=== PATIENT | female | born 1960 | race Caucasian/White ===

== ENCOUNTER 2018-03-11 17:36 | Inpatient (IN) | payer OTHER, MEDICAID ==
[~2018-03-11] VITALS: Ht 165.1 cm; Wt 77.5 kg
[2018-03-11 21:59] VITALS: BP 142/85
[2018-03-11 23:20] VITALS: BP 156/87
[2018-03-11 23:58] LABS: MEAN CORPUSCULAR HEMOGLOBIN 30.5 PG (27.0-31.0); MEAN CORPUSCULAR HGB CONC 33.3 % (33.0-36.5); MEAN CORPUSCULAR VOLUME 91.5 FL (78-98); PLATELET COUNT 245 X10'3 (140-440); RED BLOOD COUNT 3.28 X10'6 (4.20-5.60); RED CELL DISTRIBUTION WIDTH 15.9 % (11.5-14.5); WHITE BLOOD COUNT 8.9 X10'3 (4.5-11.0)
[2018-03-12 00:06] LABS: ALBUMIN 1.6 G/DL (3.4-5.0); ANION GAP 6 (8-16); BLOOD UREA NITROGEN 6 MG/DL (7-18); BUN/CREATININE RATIO 8.5 (6.6-38.0); CALCIUM 8.3 MG/DL (8.5-10.1); CHLORIDE 103 MMOL/L (99-107); CREATININE 0.71 MG/DL (0.40-0.90); GLUCOSE 80 MG/DL (70-104); SODIUM 141 MMOL/L (135-145); eGFR 85 ML/MIN
[2018-03-12 00:12] LABS: HEMOGLOBIN A1C 5.4 % (4.5-6.2)
[2018-03-12] MEDS ORDERED: potassium Cl 40MEQ/NS 500ml 500 ML IV PRN ×2 (00:25)
[2018-03-12] MEDS ORDERED: potassium Cl 20 mEq SR tablet PO PRN (00:25)
[2018-03-12] MEDS: potassium Cl 20 mEq SR tablet PO PRN ×3 (00:59→18:49)
[2018-03-12] MEDS: ketorolac tromethamine 15mg/ml inj. IV PRN ×4 (01:00→20:06)
[2018-03-12] MEDS ORDERED: LORazepam 1 MG tablet PO PRN ×2 (01:10→04:05)
[2018-03-12] MEDS ORDERED: hydrOXYzine 25 MG tablet PO PRN (01:10)
[2018-03-12 03:00] VITALS: BP 172/88
[2018-03-12] MEDS ORDERED: ondansetron 4mg rapidly disintigrating tab PO PRN (03:25)
[2018-03-12] MEDS ORDERED: tizanidine 4mg tablet PO PRN (03:25)
[2018-03-12] MEDS ORDERED: haloperidol lactate 5mg/ml inj IM PRN (04:05)
[2018-03-12] MEDS ORDERED: thiamine 100mg/ml 2ml inj. IV ONE (04:05)
[2018-03-12] MEDS ORDERED: LORazepam 2 mg/ml vial IV PRN (04:05)
[2018-03-12] MEDS ORDERED: haloperidol 5mg tablet PO PRN (04:05)
[2018-03-12] MEDS ORDERED: dextrose 50%-water 50ml dispensing syringe IV PRN (04:05)
[2018-03-12 06:00] VITALS: BP 167/77
[2018-03-12 06:20] LABS: BASOPHILS % (AUTO) 0.3 % (0-1); EOSINOPHILS # (AUTO) 0.1 X10'3 (0-0.9); EOSINOPHILS % (AUTO) 0.9 % (0-6); HEMATOCRIT 32.4 % (35.0-45.0); HEMOGLOBIN 10.8 g/dl (12.0-16.0); LYMPHOCYTES # (AUTO) 0.6 X10'3 (1.1-4.8); LYMPHOCYTES % (AUTO) 5.5 % (21-51); MEAN CORPUSCULAR HEMOGLOBIN 30.7 PG (27.0-31.0); MEAN CORPUSCULAR HGB CONC 33.4 % (33.0-36.5); MEAN CORPUSCULAR VOLUME 91.9 FL (78-98); MEAN PLATELET VOLUME 8.3 FL (7.4-10.4); MONOCYTES # (AUTO) 0.2 X10'3 (0-0.9); MONOCYTES % (AUTO) 1.5 % (2-12); NEUTROPHILS # (AUTO) 10.3 X10'3 (1.8-7.7); NEUTROPHILS % (AUTO) 91.8 % (42-75); PLATELET COUNT 266 X10'3 (140-440); RED BLOOD COUNT 3.52 X10'6 (4.20-5.60); RED CELL DISTRIBUTION WIDTH 15.8 % (11.5-14.5); WHITE BLOOD COUNT 11.3 X10'3 (4.5-11.0)
[2018-03-12] MEDS: loratadine 10mg tablet PO SCH ×2 (07:57→20:05)
[2018-03-12] MEDS: gabapentin 300mg capsule PO SCH ×3 (07:57→20:06)
[2018-03-12] MEDS: thiamine 100mg tablet PO SCH (07:57)
[2018-03-12] MEDS: busPIRone 15mg tablet PO SCH ×2 (07:57→20:06)
[2018-03-12] MEDS: vitamin D (cholecalciferol) 1,000 unit tablet PO SCH (07:58)
[2018-03-12] MEDS: famotidine 20mg tablet PO SCH (07:58)
[2018-03-12] MEDS: lisinopril 10 MG tablet PO SCH (07:58)
[2018-03-12] MEDS: cyanocobalamin 500mcg tablet PO SCH (07:58)
[2018-03-12] MEDS ORDERED: ibuprofen 200mg tablet PO SCH (08:00)
[2018-03-12] MEDS: topiramate 25mg tablet PO SCH ×2 (08:59→20:06)
[2018-03-12] MEDS: duloxetine 20mg capsule.DR PO SCH (08:59)
[2018-03-12] MEDS: HYDROcodone/acetaminophen 5mg/325mg tablet PO PRN ×3 (10:47→21:22)
[2018-03-12 11:00] VITALS: BP 161/86
[2018-03-12] MEDS ORDERED: GABA-532 PO (14:28)
[2018-03-12] MEDS ORDERED: OMEP-50 PO (14:35)
[2018-03-12] MEDS ORDERED: HYDR-3927 PO (14:35)
[2018-03-12] MEDS ORDERED: LISI10TA4 PO (14:35)
[2018-03-12] MEDS ORDERED: IBUP-1986 PO (14:35)
[2018-03-12] MEDS ORDERED: BUSP30TA3 PO (14:35)
[2018-03-12] MEDS ORDERED: TRAZ-143 PO (14:35)
[2018-03-12] MEDS ORDERED: DULO30CA51 PO (14:35)
[2018-03-12] MEDS ORDERED: LORA10TA7 PO (14:35)
[2018-03-12] MEDS ORDERED: VILA40TA PO (14:35)
[2018-03-12] MEDS ORDERED: GLAT40SY IV (14:35)
[2018-03-12 15:00] VITALS: BP 152/78
[2018-03-12 19:00] VITALS: BP 143/87
[2018-03-12] MEDS: traZODone 50mg tablet PO SCH (20:05)
[2018-03-12 21:20] LABS: MAGNESIUM 2.1 MG/DL (1.5-2.4); POTASSIUM 3.8 MMOL/L (3.5-5.1)
[2018-03-12 23:00] VITALS: BP 149/74
[2018-03-13] VITALS (28 sets, daily range): BP systolic 138–188; BP diastolic 81–114
[2018-03-13] MEDS: ketorolac tromethamine 15mg/ml inj. IV PRN (02:12)
[2018-03-13 05:56] LABS: BASOPHILS % (AUTO) 0.2 % (0-1); EOSINOPHILS # (AUTO) 0.3 X10'3 (0-0.9); EOSINOPHILS % (AUTO) 2.6 % (0-6); LYMPHOCYTES # (AUTO) 1.1 X10'3 (1.1-4.8); LYMPHOCYTES % (AUTO) 11.4 % (21-51); MEAN CORPUSCULAR HEMOGLOBIN 30.1 PG (27.0-31.0); MEAN CORPUSCULAR HGB CONC 33.1 % (33.0-36.5); MEAN PLATELET VOLUME 7.8 FL (7.4-10.4); MONOCYTES # (AUTO) 0.5 X10'3 (0-0.9); NEUTROPHILS # (AUTO) 7.8 X10'3 (1.8-7.7); NEUTROPHILS % (AUTO) 80.8 % (42-75); PRE OP PLATELET COUNT 301 X10'3 (140-440)
[2018-03-13 06:11] LABS: PRE OP PARTIAL THROMB. TIME 32 SECONDS (22-35); PROTHROMBIN TIME 10.5 SECONDS (9.0-12.0)
[2018-03-13 06:19] LABS: ALBUMIN 1.6 G/DL (3.4-5.0); ALBUMIN/GLOBULIN RATIO 0.4 (1.1-1.5); ALKALINE PHOSPHATASE 135 IU/L (46-116); BLOOD UREA NITROGEN 4 MG/DL (7-18); BUN/CREATININE RATIO 6.3 (6.6-38.0); CALCIUM 8.1 MG/DL (8.5-10.1); CHLORIDE 106 MMOL/L (99-107); CREATININE 0.63 MG/DL (0.40-0.90); PRE OP ALT 20 U/L (30-65); PRE OP ANION GAP 9 (8-16); PRE OP AST 39 U/L (10-37); PRE OP BILIRUB, TOTAL 0.4 MG/DL (0.0-1.0); PRE OP GLUCOSE 74 MG/DL (70-104); PRE OP POTASSIUM 3.6 MMOL/L (3.4-5.1); PRE OP SODIUM 141 MMOL/L (135-145); TOTAL CARBON DIOXIDE 25.8 MMOL/L (24-32); TOTAL PROTEIN 5.8 G/DL (6.4-8.2); eGFR > 90 ML/MIN
[2018-03-13 06:32] LABS: PRE OP HEMOGLOBIN 9.9 g/dL (12.0-16.0)
[2018-03-13] MEDS: lisinopril 10 MG tablet PO SCH (07:35)
[2018-03-13] MEDS ORDERED: LIDOcaine 1% (10mg/ml) 2ml vial ONE (07:39)
[2018-03-13] MEDS ORDERED: ROPIVAcaine 0.5% (5mg/ml) 30ml vial ONE (07:39)
[2018-03-13] MEDS: busPIRone 15mg tablet PO SCH ×2 (08:00→20:30)
[2018-03-13] MEDS: thiamine 100mg tablet PO SCH (08:00)
[2018-03-13] MEDS: cyanocobalamin 500mcg tablet PO SCH (08:00)
[2018-03-13] MEDS: vitamin D (cholecalciferol) 1,000 unit tablet PO SCH (08:00)
[2018-03-13] MEDS: gabapentin 300mg capsule PO SCH ×3 (08:00→20:30)
[2018-03-13] MEDS: famotidine 20mg tablet PO SCH (08:00)
[2018-03-13] MEDS: topiramate 25mg tablet PO SCH ×2 (08:00→20:30)
[2018-03-13] MEDS: loratadine 10mg tablet PO SCH ×2 (08:00→20:30)
[2018-03-13] MEDS: duloxetine 20mg capsule.DR PO SCH (08:00)
[2018-03-13] MEDS ORDERED: MIDAZolam 5mg/5ml vial ONE (08:02)
[2018-03-13] MEDS ORDERED: fentaNYL /PF 50mcg/ml 5ml ampule ONE (08:03)
[2018-03-13] MEDS ORDERED: rocuronium 10mg/ml inj IV ONE (08:06)
[2018-03-13] MEDS ORDERED: propofol inj 20 ML IV ONE (08:06)
[2018-03-13] MEDS ORDERED: sevoflurane 250ml liquid IH ONE (08:21)
[2018-03-13] MEDS ORDERED: ceFAZolin 1000mg inj ONE ×3 (09:18→09:27)
[2018-03-13] MEDS ORDERED: ringers solution, lacted 1,000 ML IV SCH (09:42)
[2018-03-13] MEDS ORDERED: labetalol 5mg/ml 20ml inj. IV ONE (09:43)
[2018-03-13] MEDS ORDERED: ondansetron/PF 4mg/2ml inj IV PRN ×2 (09:45→10:20)
[2018-03-13] MEDS ORDERED: labetalol 20mg/4ml (5mg/ml) syringe IV PRN (09:45)
[2018-03-13] MEDS ORDERED: morphine 4 MG/ML inj SYRINge IV PRN ×3 (09:45→10:20)
[2018-03-13] MEDS ORDERED: meperidine/PF 25mg/ml syringe IV PRN ×2 (09:45)
[2018-03-13] MEDS ORDERED: sugammadex 200mg/2ml injection IV ONE ×2 (10:06→10:08)
[2018-03-13] MEDS ORDERED: morphine/NS 5 mg/ml CADD 50 ML IV SCH (10:17)
[2018-03-13] MEDS ORDERED: metoclopramide 5 mg/ml inj IV PRN (10:20)
[2018-03-13] MEDS ORDERED: naloxone 0.4 mg/ml inj IV PRN (10:20)
[2018-03-13] MEDS ORDERED: albuterol 2.5 MG/3 ML nebule NEB PRN (10:20)
[2018-03-13] MEDS ORDERED: HYDROcodone/acetaminophen 10/325mg tab PO PRN (10:20)
[2018-03-13] MEDS ORDERED: CADD PCA waste documentation MC PRN (10:20)
[2018-03-13] MEDS ORDERED: magnesium hydroxide 30ml (MOM) UD suspension PO PRN (10:20)
[2018-03-13] MEDS: morphine 4 MG/ML inj SYRINge IV PRN ×2 (10:48→11:18)
[2018-03-13 11:11] LABS: ABG BASE EXCESS -2.6 mmol/L (-2.0-3.0); ABG HCO3 22.3 mmol/L (22.0-26.0); ABG PCO2 (T) 37.7 mmHg (32.0-45.0); ABG PH (T) 7.387 (7.350-7.450); ABG PO2 (T) 94.9 mmHg (83-108); FCOHb 0.3 % (0.5-1.5); FLOW 32 L/min; FMetHb 0.3 % (0.3-1.12); FO2Hb 96.4 % (94-100); PATIENT TEMPERATURE 36.4; TOTAL HEMOGLOBIN 10.5 G/dl (12.0-16.0)
[2018-03-13] MEDS: MORPHINE CADD 5 MG/ML 50ML IV SCH ×7 (11:47→23:00)
[2018-03-13] MEDS ORDERED: hydrALAZINE 20mg/ml inj. IV PRN (13:50)
[2018-03-13] MEDS: metoprolol tartrate 25mg tablet PO SCH ×2 (14:20→20:30)
[2018-03-13 14:53] LABS: BASOPHILS % (AUTO) 0.3 % (0-1); EOSINOPHILS % (AUTO) 0.2 % (0-6); HEMATOCRIT 29.5 % (35.0-45.0); HEMOGLOBIN 9.7 g/dl (12.0-16.0); LYMPHOCYTES # (AUTO) 0.8 X10'3 (1.1-4.8); LYMPHOCYTES % (AUTO) 5.4 % (21-51); MEAN CORPUSCULAR HEMOGLOBIN 30.1 PG (27.0-31.0); MEAN CORPUSCULAR VOLUME 91.3 FL (78-98); MEAN PLATELET VOLUME 7.8 FL (7.4-10.4); MONOCYTES # (AUTO) 0.2 X10'3 (0-0.9); MONOCYTES % (AUTO) 1.3 % (2-12); NEUTROPHILS # (AUTO) 14.1 X10'3 (1.8-7.7); NEUTROPHILS % (AUTO) 92.8 % (42-75); PLATELET COUNT 326 X10'3 (140-440); RED BLOOD COUNT 3.23 X10'6 (4.20-5.60); RED CELL DISTRIBUTION WIDTH 15.1 % (11.5-14.5); WHITE BLOOD COUNT 15.1 X10'3 (4.5-11.0)
[2018-03-13 15:01] LABS: ALBUMIN 1.5 G/DL (3.4-5.0); ANION GAP 12 (8-16); BLOOD UREA NITROGEN 4 MG/DL (7-18); BUN/CREATININE RATIO 7.8 (6.6-38.0); CALCIUM 8.2 MG/DL (8.5-10.1); CHLORIDE 102 MMOL/L (99-107); CREATININE 0.51 MG/DL (0.40-0.90); GLUCOSE 81 MG/DL (70-104); POTASSIUM 3.7 MMOL/L (3.5-5.1); SODIUM 139 MMOL/L (135-145); TOTAL CARBON DIOXIDE 24.7 MMOL/L (24-32); eGFR > 90 ML/MIN
[2018-03-13] MEDS: ceFAZolin 1GM/D5W- ADD-VANTAGE 50 ML IV SCH (16:08)
[2018-03-13] MEDS ORDERED: glucagon, human recombinant 1mg kit SUBCUT PRN (17:40)
[2018-03-13] MEDS ORDERED: dextrose 50%-water 50ml dispensing syringe IV PRN ×2 (17:40)
[2018-03-13] MEDS ORDERED: dextrose ORAL solution 15 GM/59 ML bottle PO PRN ×2 (17:40)
[2018-03-13] MEDS: traZODone 50mg tablet PO SCH (20:30)
[2018-03-13] MEDS: docusate sod 100mg capsule PO SCH (20:30)
[2018-03-14] VITALS (24 sets, daily range): BP systolic 83–147; BP diastolic 62–95
[2018-03-14] MEDS: ceFAZolin 1GM/D5W- ADD-VANTAGE 50 ML IV SCH (00:15)
[2018-03-14] MEDS: MORPHINE CADD 5 MG/ML 50ML IV SCH ×12 (01:00→23:00)
[2018-03-14 03:46] LABS: BASOPHILS % (AUTO) 0.3 % (0-1); EOSINOPHILS # (AUTO) 0.3 X10'3 (0-0.9); HEMATOCRIT 28.8 % (35.0-45.0); HEMOGLOBIN 9.5 g/dl (12.0-16.0); LYMPHOCYTES # (AUTO) 1.6 X10'3 (1.1-4.8); LYMPHOCYTES % (AUTO) 15.3 % (21-51); MEAN CORPUSCULAR HEMOGLOBIN 30.1 PG (27.0-31.0); MEAN CORPUSCULAR HGB CONC 32.9 % (33.0-36.5); MEAN CORPUSCULAR VOLUME 91.5 FL (78-98); MEAN PLATELET VOLUME 8.2 FL (7.4-10.4); MONOCYTES # (AUTO) 0.7 X10'3 (0-0.9); MONOCYTES % (AUTO) 6.7 % (2-12); NEUTROPHILS # (AUTO) 7.9 X10'3 (1.8-7.7); NEUTROPHILS % (AUTO) 74.7 % (42-75); PLATELET COUNT 289 X10'3 (140-440); RED BLOOD COUNT 3.15 X10'6 (4.20-5.60); RED CELL DISTRIBUTION WIDTH 15.7 % (11.5-14.5); WHITE BLOOD COUNT 10.6 X10'3 (4.5-11.0)
[2018-03-14] MEDS: cyanocobalamin 500mcg tablet PO SCH (07:11)
[2018-03-14] MEDS: metoprolol tartrate 25mg tablet PO SCH ×2 (07:12→20:50)
[2018-03-14] MEDS: docusate sod 100mg capsule PO SCH ×2 (07:12→20:51)
[2018-03-14] MEDS: loratadine 10mg tablet PO SCH ×2 (07:12→20:51)
[2018-03-14] MEDS: busPIRone 15mg tablet PO SCH ×2 (07:12→20:52)
[2018-03-14] MEDS: duloxetine 20mg capsule.DR PO SCH (07:12)
[2018-03-14] MEDS: gabapentin 300mg capsule PO SCH ×3 (07:12→20:51)
[2018-03-14] MEDS: lisinopril 10 MG tablet PO SCH (07:13)
[2018-03-14] MEDS: thiamine 100mg tablet PO SCH (07:13)
[2018-03-14] MEDS: topiramate 25mg tablet PO SCH ×2 (07:13→20:51)
[2018-03-14] MEDS: vitamin D (cholecalciferol) 1,000 unit tablet PO SCH (07:14)
[2018-03-14] MEDS: famotidine 20mg tablet PO SCH (07:21)
[2018-03-14 14:43] LABS: ALBUMIN 1.7 G/DL (3.4-5.0); ANION GAP 8 (8-16); BLOOD UREA NITROGEN 8 MG/DL (7-18); BUN/CREATININE RATIO 11.3 (6.6-38.0); CALCIUM 8.2 MG/DL (8.5-10.1); CHLORIDE 101 MMOL/L (99-107); CREATININE 0.71 MG/DL (0.40-0.90); GLUCOSE 99 MG/DL (70-104); POTASSIUM 4.2 MMOL/L (3.5-5.1); SODIUM 139 MMOL/L (135-145); TOTAL CARBON DIOXIDE 30.5 MMOL/L (24-32); eGFR 85 ML/MIN
[2018-03-14] MEDS: traZODone 50mg tablet PO SCH (20:51)
[2018-03-15] VITALS (15 sets, daily range): BP systolic 98–124; BP diastolic 61–90
[2018-03-15] MEDS: MORPHINE CADD 5 MG/ML 50ML IV SCH ×4 (01:00→07:00)
[2018-03-15 05:35] LABS: BASOPHILS # (AUTO) 0.1 X10'3 (0-0.2); BASOPHILS % (AUTO) 0.8 % (0-1); EOSINOPHILS # (AUTO) 0.3 X10'3 (0-0.9); EOSINOPHILS % (AUTO) 2.1 % (0-6); HEMATOCRIT 30.8 % (35.0-45.0); HEMOGLOBIN 10.3 g/dl (12.0-16.0); LYMPHOCYTES # (AUTO) 1.1 X10'3 (1.1-4.8); LYMPHOCYTES % (AUTO) 8.5 % (21-51); MEAN CORPUSCULAR HEMOGLOBIN 30.7 PG (27.0-31.0); MEAN CORPUSCULAR HGB CONC 33.4 % (33.0-36.5); MEAN CORPUSCULAR VOLUME 92.1 FL (78-98); MEAN PLATELET VOLUME 7.6 FL (7.4-10.4); MONOCYTES # (AUTO) 0.6 X10'3 (0-0.9); MONOCYTES % (AUTO) 4.8 % (2-12); NEUTROPHILS # (AUTO) 10.4 X10'3 (1.8-7.7); NEUTROPHILS % (AUTO) 83.8 % (42-75); PLATELET COUNT 354 X10'3 (140-440); RED BLOOD COUNT 3.34 X10'6 (4.20-5.60); RED CELL DISTRIBUTION WIDTH 16.2 % (11.5-14.5); WHITE BLOOD COUNT 12.4 X10'3 (4.5-11.0)
[2018-03-15] MEDS: famotidine 20mg tablet PO SCH (07:09)
[2018-03-15] MEDS: vitamin D (cholecalciferol) 1,000 unit tablet PO SCH (07:09)
[2018-03-15] MEDS: lisinopril 10 MG tablet PO SCH (07:10)
[2018-03-15] MEDS: gabapentin 300mg capsule PO SCH ×3 (07:10→20:14)
[2018-03-15] MEDS: cyanocobalamin 500mcg tablet PO SCH (07:10)
[2018-03-15] MEDS: metoprolol tartrate 25mg tablet PO SCH ×2 (07:10→20:17)
[2018-03-15] MEDS: duloxetine 20mg capsule.DR PO SCH (07:10)
[2018-03-15] MEDS: busPIRone 15mg tablet PO SCH ×2 (07:10→20:15)
[2018-03-15] MEDS: loratadine 10mg tablet PO SCH ×2 (07:10→20:14)
[2018-03-15] MEDS: thiamine 100mg tablet PO SCH (07:10)
[2018-03-15] MEDS: topiramate 25mg tablet PO SCH ×2 (07:10→20:14)
[2018-03-15] MEDS: docusate sod 100mg capsule PO SCH ×2 (07:10→20:13)
[2018-03-15] MEDS ORDERED: potassium Cl 40MEQ/NS 500ml 500 ML IV PRN ×2 (08:30)
[2018-03-15] MEDS ORDERED: magnesium Cl slow-release 64mg tablet PO PRN (08:30)
[2018-03-15] MEDS ORDERED: potassium Cl 20 mEq SR tablet PO PRN ×2 (08:30)
[2018-03-15] MEDS ORDERED: magnesium 4gm in 100ml NS 100 ML IV PRN (08:30)
[2018-03-15] MEDS ORDERED: magnesium/D5W IVPB 50 ML IV PRN (08:30)
[2018-03-15] MEDS: HYDROcodone/acetaminophen 10/325mg tab PO PRN ×3 (11:28→20:18)
[2018-03-15] MEDS: magnesium Cl slow-release 64mg tablet PO SCH (20:11)
[2018-03-15] MEDS: traZODone 50mg tablet PO SCH (20:13)
[2018-03-15] MEDS: potassium Cl 20 mEq SR tablet PO SCH (20:15)
[2018-03-16] MEDS: HYDROcodone/acetaminophen 10/325mg tab PO PRN ×5 (01:23→21:06)
[2018-03-16 03:00] VITALS: BP 112/70
[2018-03-16 06:00] VITALS: BP 134/74
[2018-03-16 06:23] LABS: BASOPHILS % (AUTO) 0.4 % (0-1); EOSINOPHILS # (AUTO) 0.3 X10'3 (0-0.9); EOSINOPHILS % (AUTO) 4.1 % (0-6); HEMOGLOBIN 9.2 g/dl (12.0-16.0); LYMPHOCYTES # (AUTO) 1.5 X10'3 (1.1-4.8); LYMPHOCYTES % (AUTO) 24.2 % (21-51); MEAN CORPUSCULAR HEMOGLOBIN 30.1 PG (27.0-31.0); MEAN CORPUSCULAR VOLUME 91.1 FL (78-98); MEAN PLATELET VOLUME 7.5 FL (7.4-10.4); MONOCYTES # (AUTO) 0.6 X10'3 (0-0.9); NEUTROPHILS % (AUTO) 62.3 % (42-75); PLATELET COUNT 363 X10'3 (140-440); RED BLOOD COUNT 3.07 X10'6 (4.20-5.60); RED CELL DISTRIBUTION WIDTH 15.9 % (11.5-14.5); WHITE BLOOD COUNT 6.4 X10'3 (4.5-11.0)
[2018-03-16 06:56] LABS: ALBUMIN 1.5 G/DL (3.4-5.0); ANION GAP 6 (8-16); BLOOD UREA NITROGEN 10 MG/DL (7-18); BUN/CREATININE RATIO 17.2 (6.6-38.0); CALCIUM 8.2 MG/DL (8.5-10.1); CHLORIDE 106 MMOL/L (99-107); CREATININE 0.58 MG/DL (0.40-0.90); GLUCOSE 84 MG/DL (70-104); POTASSIUM 3.9 MMOL/L (3.5-5.1); SODIUM 142 MMOL/L (135-145); TOTAL CARBON DIOXIDE 30.1 MMOL/L (24-32); eGFR > 90 ML/MIN
[2018-03-16] MEDS: potassium Cl 20 mEq SR tablet PO SCH ×2 (07:41→21:01)
[2018-03-16] MEDS: gabapentin 300mg capsule PO SCH ×3 (07:41→21:02)
[2018-03-16] MEDS: topiramate 25mg tablet PO SCH ×2 (07:41→21:02)
[2018-03-16] MEDS: lisinopril 10 MG tablet PO SCH (07:41)
[2018-03-16] MEDS: duloxetine 20mg capsule.DR PO SCH (07:41)
[2018-03-16] MEDS: loratadine 10mg tablet PO SCH ×2 (07:41→21:00)
[2018-03-16] MEDS: vitamin D (cholecalciferol) 1,000 unit tablet PO SCH (07:41)
[2018-03-16] MEDS: metoprolol tartrate 25mg tablet PO SCH ×2 (07:42→21:01)
[2018-03-16] MEDS: cyanocobalamin 500mcg tablet PO SCH (07:42)
[2018-03-16] MEDS: busPIRone 15mg tablet PO SCH ×2 (07:42→21:00)
[2018-03-16] MEDS: docusate sod 100mg capsule PO SCH ×2 (07:42→21:00)
[2018-03-16] MEDS: famotidine 20mg tablet PO SCH (07:42)
[2018-03-16] MEDS: magnesium Cl slow-release 64mg tablet PO SCH ×2 (07:43→21:02)
[2018-03-16] MEDS: thiamine 100mg tablet PO SCH (07:43)
[2018-03-16] MEDS: K and/or MAG REPLACEMENT MC SCH (08:00)
[2018-03-16 11:00] VITALS: BP 104/65
[2018-03-16 15:00] VITALS: BP 132/80
[2018-03-16 16:00] VITALS: BP 114/66
[2018-03-16] MEDS: traZODone 50mg tablet PO SCH (21:02)
[2018-03-16 22:00] VITALS: BP 102/69
[2018-03-17 02:00] VITALS: BP 117/71
[2018-03-17] MEDS: HYDROcodone/acetaminophen 10/325mg tab PO PRN ×3 (02:01→12:07)
[2018-03-17 06:19] LABS: BASOPHILS # (AUTO) 0.1 X10'3 (0-0.2); BASOPHILS % (AUTO) 0.7 % (0-1); EOSINOPHILS # (AUTO) 0.2 X10'3 (0-0.9); EOSINOPHILS % (AUTO) 2.7 % (0-6); HEMOGLOBIN 9.5 g/dl (12.0-16.0); LYMPHOCYTES # (AUTO) 1.7 X10'3 (1.1-4.8); LYMPHOCYTES % (AUTO) 18.4 % (21-51); MEAN CORPUSCULAR HGB CONC 32.8 % (33.0-36.5); MEAN CORPUSCULAR VOLUME 91.3 FL (78-98); MEAN PLATELET VOLUME 8.1 FL (7.4-10.4); MONOCYTES # (AUTO) 0.6 X10'3 (0-0.9); MONOCYTES % (AUTO) 6.5 % (2-12); NEUTROPHILS # (AUTO) 6.5 X10'3 (1.8-7.7); NEUTROPHILS % (AUTO) 71.7 % (42-75); PLATELET COUNT 485 X10'3 (140-440); RED BLOOD COUNT 3.18 X10'6 (4.20-5.60); RED CELL DISTRIBUTION WIDTH 15.8 % (11.5-14.5)
[2018-03-17 06:34] LABS: ALBUMIN 1.6 G/DL (3.4-5.0); ANION GAP 8 (8-16); BLOOD UREA NITROGEN 9 MG/DL (7-18); BUN/CREATININE RATIO 13.6 (6.6-38.0); CALCIUM 8.6 MG/DL (8.5-10.1); CHLORIDE 106 MMOL/L (99-107); CREATININE 0.66 MG/DL (0.40-0.90); GLUCOSE 82 MG/DL (70-104); POTASSIUM 4.2 MMOL/L (3.5-5.1); SODIUM 142 MMOL/L (135-145); eGFR > 90 ML/MIN
[2018-03-17] MEDS: docusate sod 100mg capsule PO SCH (07:14)
[2018-03-17] MEDS: topiramate 25mg tablet PO SCH (07:15)
[2018-03-17] MEDS: magnesium Cl slow-release 64mg tablet PO SCH (07:15)
[2018-03-17] MEDS: loratadine 10mg tablet PO SCH (07:15)
[2018-03-17] MEDS: potassium Cl 20 mEq SR tablet PO SCH (07:15)
[2018-03-17] MEDS: gabapentin 300mg capsule PO SCH ×2 (07:15→12:07)
[2018-03-17] MEDS: duloxetine 20mg capsule.DR PO SCH (07:16)
[2018-03-17] MEDS: thiamine 100mg tablet PO SCH (07:16)
[2018-03-17] MEDS: busPIRone 15mg tablet PO SCH (07:16)
[2018-03-17] MEDS: famotidine 20mg tablet PO SCH (07:16)
[2018-03-17] MEDS: cyanocobalamin 500mcg tablet PO SCH (07:16)
[2018-03-17] MEDS: lisinopril 10 MG tablet PO SCH (07:16)
[2018-03-17] MEDS: metoprolol tartrate 25mg tablet PO SCH (07:17)
[2018-03-17] MEDS: vitamin D (cholecalciferol) 1,000 unit tablet PO SCH (07:17)
[2018-03-17 07:26] VITALS: BP 105/69
[2018-03-17] MEDS: K and/or MAG REPLACEMENT MC SCH (08:00)
[2018-03-17] MEDS ORDERED: METO25TA6 PO (09:32)
[2018-03-17] MEDS ORDERED: HYDR-3972 PO (09:32)
[2018-03-17 12:32] VITALS: BP 105/71
== END 2018-03-17 13:10 | disposition home or self-care (01) | DRG 163 ==
LOC: PCU 3S 21:27 → ICU 2S 03-13 11:22 → PCU 3S 03-15 14:56
PROVIDERS: ADMIT Thoracic Surgery (Cardiothoracic Vascular Surgery); ATTEND Thoracic Surgery (Cardiothoracic Vascular Surgery)
PROC: 0B9J8ZX Drainage of Left Lower Lung Lobe, Via Natural or Artificial Opening Endoscopic, Diagnostic (ICD-10-PCS; 2018-03-13)
PROC: 0W9B40Z Drainage of Left Pleural Cavity with Drainage Device, Percutaneous Endoscopic Approach (ICD-10-PCS; 2018-03-13)
PROC: 05HM33Z Insertion of Infusion Device into Right Internal Jugular Vein, Percutaneous Approach (ICD-10-PCS; 2018-03-13)
PROC: 0BNL4ZZ Release Left Lung, Percutaneous Endoscopic Approach (ICD-10-PCS; principal; 2018-03-13 08:21)
DX: J98.19 Other pulmonary collapse (principal); J86.9 Pyothorax without fistula; G35 Multiple sclerosis; E66.01 Morbid (severe) obesity due to excess calories; G43.909 Migraine, unspecified, not intractable, without status migrainosus; G89.29 Other chronic pain; M54.9 Dorsalgia, unspecified; B19.20 Unspecified viral hepatitis C without hepatic coma; E88.09 Other disorders of plasma-protein metabolism, not elsewhere classified; I10 Essential (primary) hypertension; Z90.710 Acquired absence of both cervix and uterus; Z98.84 Bariatric surgery status; Z88.5 Allergy status to narcotic agent; Z68.28 Body mass index [BMI] 28.0-28.9, adult
CPT/HCPCS: 36415; 36600; 71045; 80048; 80053; 82803; 82948; 83036; 83735; 84132; 85018; 85025; 85027; 85610; 85730; 86885; 86900; 86901; 86920; 87070; 87075; 87102; 87176; 93005; 94010; 94668; 94760; 97110; 97116; 97161; 97530; A6213; A6222; A6253; A6257; A6258; A6449; A7000; A7048; C1758; C9399; J0690; J1885; J2250; J2270; J2704; J2795; J3010; J3411; J3490; J7030; J7060; J7120